=== PATIENT | female | born 1945 | race Caucasian/White ===

== ENCOUNTER 2019-06-14 | Emergency (ER) | payer OTHER ==
--- NOTE | 2019-06-14 20:22 | ED.PDOC ---
History of Present Illness - General Chief Complaint: General Stated Complaint: None - Medical Clearance Time Seen by Provider: 06/14/19 20:20 Source: patient Exam Limitations: no limitations - History of Present Illness Initial Comments: the patient is a 73-year-old female [facility] clearance to be taken to care home. The patient apparently got dizzy and slid down the side of the car when she was going to be arrested. Talking with the patient, ever since she was 15 or 16 years old when she stands up for any real period of time more than a few minutes she started to get dizzy and well get weak. This is not a new issue for her. She feelsfine right now. No chest pain or shortness of breath. No syncope or near-syncope. She is not taking any medications. Blood pressure is adequate. Heart rate and rhythm are within normal limits. She is anxious but cooperative. she does report daily alcohol intake but denies alcohol intake today. She denies drug use. Very poor dentition. The patient is quite thin.she does apparently have a history of significant head injury about 30 years ago leaving her with somemild chronic deficits. She apparently lives by herself according to her. Severity: mild Improving Factors: nothing Worsening Factors: nothing Review of Systems - Review of Systems Constitutional: States: no symptoms reported EENTM: States: no symptoms reported Respiratory: States: no symptoms reported Cardiology: States: no symptoms reported Gastrointestinal/Abdominal: States: no symptoms reported Genitourinary: States: no symptoms reported Musculoskeletal: States: no symptoms reported Skin: States: no symptoms reported Neurological: States: no symptoms reported, anxiety Endocrine: States: no symptoms reported All other Systems: No Change from Baseline Past Medical History (General) - Patient Medical History Surgical History: no surgical history - Vaccination History Hx Tetanus, Diphtheria Vaccination: No Hx Influenza Vaccination: No Hx Pneumococcal Vaccination: No Immunizations Up to Date: No - Social History Cigarettes Packs Per Day: 2 Hx Alcohol Use: Yes - 3-4 32 ounce cans of beer per day - Female History Patient is a Female of Child Bearing Age (10 -59 yrs old): No - Triage Comment ED Triage Comment: Patient was brought to the ER in custody of [facility] for medical clearance. Family Medical History - Family History Mother Family History: Unknown Physical Exam - Physical Exam General Appearance: Alert, Anxious, No apparent distress Eye Exam: bilateral normal Ears, Nose, Throat: hearing grossly normal, normal ENT inspection - poor dentition Neck: full range of motion, supple Respiratory: lungs clear, normal breath sounds, no respiratory distress, no accessory muscle use Cardiovascular/Chest: normal peripheral pulses, regular rate, rhythm, no edema Peripheral Pulses: radial,right: 2+, radial,left: 2+, dorsalis pedis,right: 2+, dorsalis pedis,left: 2+ Gastrointestinal/Abdominal: non tender, soft Rectal Exam: deferred Back Exam: normal inspection, no CVA tenderness, no vertebral tenderness Extremity: normal range of motion, non-tender, normal inspection, no pedal edema, normal capillary refill Neurologic: vamp throater II-XII nml as tested, alert, normal mood/affect - anxious, oriented x 3 Skin Exam: normal color Comments: Vital Signs - 24 hr 06/14/19 19:52 Temperature 97.6 F Pulse Rate [ 83 monitor] Respiratory 18 Rate Blood Pressure 166/82 [Right Arm] O2 Sat by Pulse 100 Oximetry Progress - Progress Progress: 06/14/19 20:23 the patient's a 73-year-old female brought in under custody for medical clearance for incarceration. The patient does have a history of significant head injury and long-term history of significant orthostasis. It would be a good idea to keep the patient from standing up in one place for too long a period of time or she may get dizzy and fall. I would recommend a general health maintenance exam and lab work within the next few months as it seems she has not had that in a long time. she does appear to be a daily drinker. No obvious history of any significant withdrawals. The patient will be discharged to custody. no obvious distress or acute pathology at this time on exam. Departure - Departure Clinical Impression: Medical clearance for incarceration Disposition: Penitentiary Condition: Fair Departure Forms: ED Discharge - Pt. Copy, Patient Portal Self Enrollment Diet: regular diet Activity: increase activity as tolerated Additional Instructions: the patient's a 73-year-old female brought in under custody for medical clearance for incarceration. The patient does have a history of significant head injury and long-term history of significant orthostasis. It would be a good idea to keep the patient from standing up in one place for too long a period of time or she may get dizzy and fall. I would recommend a general health maintenance exam and lab work within the next few months as it seems she has not had that in a long time. she does appear to be a daily drinker. No obvious history of any significant withdrawals. The patient will be discharged to custody. no obvious distress or acute pathology at this time on exam.
== END 2019-06-14 20:34 ==